=== PATIENT | female | born 1950 | race Caucasian/White ===

== ENCOUNTER 2019-10-03 20:29 | Inpatient (IN) ==
[2019-10-03] MEDS ORDERED: LACTATED RINGERS 1,000 ML IV ONE (20:48)
[2019-10-03 21:50] LABS: Basophils % 0.7 % (0.0-0.8); Eosinophils # 0.1 10*3/uL (0.0-0.87); Eosinophils % 7.1 % (0.00-10.9); Hematocrit 38.2 VOL% (35.7-47.0); Hemoglobin 13.1 GM/DL (12.0-16.0); Immature Granulocytes % 23.4 %; Immature Granulocytes Absolute 0.33 #; Lymphocytes # 0.2 10*3/uL (1.4-4.0); Lymphocytes % 11.3 % (21.3-54.2); Mean Corpuscular HGB Conc 34.3 GM/DL (32-36); Mean Corpuscular Volume 88.2 FL (87-102); Mean Platelet Volume 10.5 FL (9.6-12.0); Monocytes % 0.7 % (1.7-12.7); Neutrophils % 56.8 % (38.7-73.9); Platelet Count 199 T/CUMM (130-400); Red Blood Count 4.33 MC/CUMM (3.8-5.5); Red Cell Distribution Width 12.5 % (9.3-17.3)
[2019-10-03 22:02] LABS: Calcium 8.7 MG/DL (8.5-10.1); Osmolality,Calculated 272.1 MOS/KG (273-304)
[2019-10-03 22:11] LABS: White Blood Count 1.4 T/CUMM (4-12)
[2019-10-03 22:17] LABS: Eosinophils 8 % (0-10); Lymphocytes 19 % (20-55); Segmented Neutrophils 71 % (50-85); Total Cells Counted 100
[2019-10-03 22:18] LABS: Hypersegmented Neutrophil Few; Platelet Estimate Adequate
[2019-10-03 22:34] LABS: Apearance,Urine Slightly Hazy (Clear); Bilirubin,Urine Negative (Negative); Blood, Urine Moderate mg/dL (Negative); Glucose,Urine (UA) Negative (Negative); Ketones,Urine 80 mg/dL (Negative); Mucus,Urine Occasional /LPF (Occasional); Nitrite,Urine Negative (Negative); Protein,Urine Negative; RBC,Urine 3 /HPF (0-4); Squamous Epithelial Cell,Urine Occasional /HPF (0-10); Urine Color Yellow (Yellow); Urine Specific Gravity 1.018 (1.001-1.035); WBC,Urine 2 /HPF (0-6)
[2019-10-03] MEDS ORDERED: LEVOFLOXACIN INJ 500 MG in PREMIX 1 EACH IV STA (22:39)
[2019-10-03] MEDS ORDERED: ACETAMINOPHEN 325 MG TABLET PO PRN (22:46)
[2019-10-04] MEDS: SODIUM CHLORIDE 0.9% 1,000 ML IV SCH ×3 (00:30→15:29)
[2019-10-04] MEDS: ONDANSETRON 4 MG/2 ML VIAL IV PRN ×2 (00:30→17:26)
[2019-10-04 06:00] LABS: Basophils % 7.4 % (0.0-0.8); Eosinophils # 0.1 10*3/uL (0.0-0.87); Eosinophils % 22.2 % (0.00-10.9); Hematocrit 32.9 VOL% (35.7-47.0); Hemoglobin 11.3 GM/DL (12.0-16.0); Immature Granulocytes % 25.9 %; Immature Granulocytes Absolute 0.14 #; Lymphocytes # 0.1 10*3/uL (1.4-4.0); Lymphocytes % 22.2 % (21.3-54.2); Mean Corpuscular HGB Conc 34.3 GM/DL (32-36); Mean Corpuscular Volume 87.3 FL (87-102); Mean Platelet Volume 10.3 FL (9.6-12.0); Monocytes % 3.7 % (1.7-12.7); Neutrophils % 18.6 % (38.7-73.9); Platelet Count 165 T/CUMM (130-400); Red Blood Count 3.77 MC/CUMM (3.8-5.5); Red Cell Distribution Width 12.3 % (9.3-17.3)
[2019-10-04 06:08] LABS: White Blood Count 0.5 T/CUMM (4-12)
[2019-10-04 06:25] LABS: Eosinophils 14 % (0-10); Lymphocytes 35 % (20-55); Segmented Neutrophils 50 % (50-85); Total Cells Counted 100
[2019-10-04 06:26] LABS: Hypochromasia Slight; Platelet Estimate Adequate
[2019-10-04] MEDS ORDERED: HYDROcod/ACETAMIN 7.5-325 MG/15 ML UDCUP PO PRN (09:28)
[2019-10-04] MEDS ORDERED: ONDANSETRON ODT 4 MG TABLET PO PRN (09:28)
[2019-10-04] MEDS: PIPERACILLIN/TAZOBACTAM 3,375 MG in SODIUM CHLORIDE 0.9% 100 ML IV SCH ×3 (10:57→22:52)
[2019-10-04] MEDS: PANTOPRAZOLE 40 MG TABLET PO SCH (10:59)
[2019-10-04] MEDS: DOCUSATE SODIUM 100 MG CAPSULE PO SCH ×2 (10:59→21:00)
[2019-10-04] MEDS: FILGRASTIM-SNDZ 300 MCG/0.5 ML SYRINGE SUBCUT SCH (13:52)
[2019-10-04] MEDS: PILOCARPINE 5 MG TABLET PO SCH ×3 (13:52→21:01)
[2019-10-04] MEDS ORDERED: VANCOMYCIN (NICU) 1,000 MG in SYRINGE 1 EACH IV SCH (14:00)
[2019-10-04] MEDS: VANCOMYCIN INJ 1,000 MG in SODIUM CHLORIDE 0.9% 250 ML IV SCH (15:32)
[2019-10-04] MEDS: CITALOPRAM 20 MG TABLET PO SCH (21:00)
[2019-10-04] MEDS: PREGABALIN 75 MG CAPSULE PO SCH (21:01)
[2019-10-04] MEDS: LEVOFLOXACIN INJ 500 MG in PREMIX 1 EACH IV SCH (21:41)
[2019-10-05] MEDS: VANCOMYCIN INJ 1,000 MG in SODIUM CHLORIDE 0.9% 250 ML IV SCH ×2 (02:56→17:26)
[2019-10-05 06:03] LABS: Hematocrit 32.3 VOL% (35.7-47.0); Hemoglobin 10.8 GM/DL (12.0-16.0); Immature Granulocytes % 4.3 %; Immature Granulocytes Absolute 0.01 #; Lymphocytes # 0.1 10*3/uL (1.4-4.0); Lymphocytes % 43.5 % (21.3-54.2); Mean Corpuscular HGB Conc 33.4 GM/DL (32-36); Mean Corpuscular Volume 90.7 FL (87-102); Mean Platelet Volume 11.3 FL (9.6-12.0); Monocytes % 4.3 % (1.7-12.7); Neutrophils % 34.9 % (38.7-73.9); Platelet Count 127 T/CUMM (130-400); Red Blood Count 3.56 MC/CUMM (3.8-5.5); Red Cell Distribution Width 12.2 % (9.3-17.3)
[2019-10-05 06:06] LABS: White Blood Count 0.2 T/CUMM (4-12)
[2019-10-05] MEDS: PIPERACILLIN/TAZOBACTAM 3,375 MG in SODIUM CHLORIDE 0.9% 100 ML IV SCH ×3 (06:15→23:25)
[2019-10-05 06:21] LABS: Calcium 7.3 MG/DL (8.5-10.1); Osmolality,Calculated 266.2 MOS/KG (273-304)
[2019-10-05 06:36] LABS: Eosinophils 40 % (0-10); Lymphocytes 52 % (20-55); Segmented Neutrophils 8 % (50-85); Total Cells Counted 100
[2019-10-05] MEDS: ONDANSETRON 4 MG/2 ML VIAL IV PRN ×2 (09:31→15:08)
[2019-10-05] MEDS: SODIUM CHLORIDE 0.9% 1,000 ML IV SCH (09:31)
[2019-10-05] MEDS: prednisoLONE 15 MG/5 ML ORAL.SYR PO SCH (09:34)
[2019-10-05] MEDS: PILOCARPINE 5 MG TABLET PO SCH ×4 (09:36→20:43)
[2019-10-05] MEDS: PREGABALIN 75 MG CAPSULE PO SCH ×2 (09:38→20:42)
[2019-10-05] MEDS: ESTRADIOL 2 MG TABLET PO SCH (09:38)
[2019-10-05] MEDS: POTASSIUM CHLORIDE 20 MEQ PACK PO SCH ×2 (09:38→12:05)
[2019-10-05] MEDS: LOSARTAN 50 MG TABLET PO SCH (09:39)
[2019-10-05] MEDS: VERAPAMIL 120 MG TABLET PO SCH (09:39)
[2019-10-05] MEDS: allopurinoL 300 MG TABLET PO SCH (09:39)
[2019-10-05] MEDS: MULTIVITAMIN (CENTRUM) TABLET PO SCH (09:39)
[2019-10-05] MEDS: PANTOPRAZOLE 40 MG TABLET PO SCH (09:39)
[2019-10-05] MEDS: DOCUSATE SODIUM 100 MG CAPSULE PO SCH ×2 (09:41→20:42)
[2019-10-05] MEDS: NYSTATIN 500,000 UNIT/5 ML UDCUP SWISH/SWAL SCH ×4 (09:41→20:43)
[2019-10-05] MEDS: FILGRASTIM-SNDZ 300 MCG/0.5 ML SYRINGE SUBCUT SCH (09:42)
[2019-10-05] MEDS ORDERED: POTASSIUM CHLORIDE RIDER 20 MEQ in PREMIX 1 EACH IV ONE (11:55)
[2019-10-05] MEDS: SODIUM CHLOR 0.9% KCL 40 MEQ 40 MEQ/1,000 ML BAG IV SCH ×2 (12:34→22:02)
[2019-10-05] MEDS ORDERED: ZALEPLON 5 MG CAPSULE PO PRN (18:06)
[2019-10-05] MEDS: CITALOPRAM 20 MG TABLET PO SCH (20:42)
[2019-10-05] MEDS: LEVOFLOXACIN INJ 500 MG in PREMIX 1 EACH IV SCH (20:44)
[2019-10-06] MEDS: VANCOMYCIN INJ 1,000 MG in SODIUM CHLORIDE 0.9% 250 ML IV SCH ×2 (03:22→14:35)
[2019-10-06] MEDS: PIPERACILLIN/TAZOBACTAM 3,375 MG in SODIUM CHLORIDE 0.9% 100 ML IV SCH ×3 (06:20→23:22)
[2019-10-06 06:34] LABS: Eosinophils # 0.1 10*3/uL (0.0-0.87); Eosinophils % 38.1 % (0.00-10.9); Hematocrit 27.4 VOL% (35.7-47.0); Hemoglobin 9.1 GM/DL (12.0-16.0); Lymphocytes # 0.1 10*3/uL (1.4-4.0); Lymphocytes % 52.4 % (21.3-54.2); Mean Corpuscular HGB Conc 33.2 GM/DL (32-36); Mean Platelet Volume 11.1 FL (9.6-12.0); Monocytes % 4.8 % (1.7-12.7); Neutrophils % 4.7 % (38.7-73.9); Red Blood Count 3.08 MC/CUMM (3.8-5.5); Red Cell Distribution Width 12.5 % (9.3-17.3)
[2019-10-06 06:36] LABS: Platelet Count 87 T/CUMM (130-400)
[2019-10-06 06:38] LABS: White Blood Count 0.2 T/CUMM (4-12)
[2019-10-06 06:55] LABS: Calcium 7.3 MG/DL (8.5-10.1); Osmolality,Calculated 272.7 MOS/KG (273-304)
[2019-10-06 06:59] LABS: Eosinophils 53 % (0-10); Lymphocytes 27 % (20-55); Platelet Estimate Decreased; Segmented Neutrophils 13 % (50-85); Total Cells Counted 100
[2019-10-06 07:00] LABS: Hypochromasia 1+
[2019-10-06] MEDS ORDERED: ALPRAZolam 0.25 MG TABLET PO PRN (07:45)
[2019-10-06] MEDS ORDERED: guaiFENesin 200 MG/10 ML UDCUP PO PRN (07:45)
[2019-10-06] MEDS ORDERED: traMADol 50 MG TABLET PO PRN (07:45)
[2019-10-06] MEDS ORDERED: MYLANTA/LIDO VISC 2:1 300 ML BOTTLE SWISH/SPIT PRN (07:45)
[2019-10-06] MEDS ORDERED: LACTULOSE 20 GM/30 ML UDCUP PO PRN (07:45)
[2019-10-06] MEDS ORDERED: ALUMINUM/MAGNES/SIMETH MAX STR 30 ML UDCUP PO PRN (07:45)
[2019-10-06] MEDS ORDERED: MYLANTA/LIDO VISC 2:1 300 ML BOTTLE SWISH/SWAL PRN (07:45)
[2019-10-06] MEDS ORDERED: PROMETHAZINE INJ 25 MG in SODIUM CHLORIDE 0.9% 50 ML IV PRN (07:45)
[2019-10-06] MEDS ORDERED: LOPERAMIDE 2 MG CAPSULE PO PRN ×2 (07:45)
[2019-10-06] MEDS ORDERED: MAGNESIUM HYDROXIDE SUSP 30 ML UDCUP PO PRN (07:45)
[2019-10-06] MEDS ORDERED: diphenhydrAMINE CAP 25 MG CAPSULE PO PRN (07:45)
[2019-10-06] MEDS ORDERED: ONDANSETRON 4 MG/2 ML VIAL IV PRN (07:45)
[2019-10-06] MEDS: MULTIVITAMIN (CENTRUM) TABLET PO SCH (08:28)
[2019-10-06] MEDS: ESTRADIOL 2 MG TABLET PO SCH (08:28)
[2019-10-06] MEDS: NYSTATIN 500,000 UNIT/5 ML UDCUP SWISH/SWAL SCH ×4 (08:28→21:11)
[2019-10-06] MEDS: LOSARTAN 50 MG TABLET PO SCH (08:29)
[2019-10-06] MEDS: PILOCARPINE 5 MG TABLET PO SCH ×4 (08:29→21:11)
[2019-10-06] MEDS: prednisoLONE 15 MG/5 ML ORAL.SYR PO SCH (08:29)
[2019-10-06] MEDS: PANTOPRAZOLE 40 MG TABLET PO SCH (08:30)
[2019-10-06] MEDS: SODIUM CHLOR 0.9% KCL 40 MEQ 40 MEQ/1,000 ML BAG IV SCH ×2 (08:30→16:30)
[2019-10-06] MEDS: DOCUSATE SODIUM 100 MG CAPSULE PO SCH ×2 (08:30→21:10)
[2019-10-06] MEDS: VERAPAMIL 120 MG TABLET PO SCH (08:30)
[2019-10-06] MEDS: PREGABALIN 75 MG CAPSULE PO SCH ×2 (08:30→21:10)
[2019-10-06] MEDS: allopurinoL 300 MG TABLET PO SCH (08:30)
[2019-10-06] MEDS: FILGRASTIM-SNDZ 300 MCG/0.5 ML SYRINGE SUBCUT SCH (08:31)
[2019-10-06] MEDS: CITALOPRAM 20 MG TABLET PO SCH (21:10)
[2019-10-06] MEDS: TEMAZEPAM 7.5 MG CAPSULE PO PRN (21:11)
[2019-10-06] MEDS: LEVOFLOXACIN INJ 500 MG in PREMIX 1 EACH IV SCH (21:52)
[2019-10-07] MEDS: VANCOMYCIN INJ 1,000 MG in SODIUM CHLORIDE 0.9% 250 ML IV SCH ×2 (03:02→14:33)
[2019-10-07 04:42] LABS: Eosinophils % 17.4 % (0.00-10.9); Hematocrit 26.1 VOL% (35.7-47.0); Hemoglobin 8.8 GM/DL (12.0-16.0); Lymphocytes # 0.1 10*3/uL (1.4-4.0); Lymphocytes % 47.8 % (21.3-54.2); Mean Corpuscular HGB Conc 33.7 GM/DL (32-36); Mean Corpuscular Volume 89.1 FL (87-102); Mean Platelet Volume 11.6 FL (9.6-12.0); Monocytes % 8.7 % (1.7-12.7); Neutrophils % 26.1 % (38.7-73.9); Red Blood Count 2.93 MC/CUMM (3.8-5.5); Red Cell Distribution Width 12.6 % (9.3-17.3)
[2019-10-07 04:45] LABS: White Blood Count 0.2 T/CUMM (4-12)
[2019-10-07 04:46] LABS: Platelet Count 60 T/CUMM (130-400)
[2019-10-07 04:55] LABS: Calcium 7.4 MG/DL (8.5-10.1); Osmolality,Calculated 275.4 MOS/KG (273-304)
[2019-10-07 05:22] LABS: Eosinophils 25 % (0-10); Metamyelocytes 5 %; Platelet Estimate Decreased; Segmented Neutrophils 10 % (50-85)
[2019-10-07 05:25] LABS: Hypochromasia 2+; Lymphocytes 7 % (20-55); Total Cells Counted 72
[2019-10-07 05:26] LABS: Anisocytosis 1+; Macrocytosis 1+
[2019-10-07 05:27] LABS: Ovalocytes 2+
[2019-10-07] MEDS: PIPERACILLIN/TAZOBACTAM 3,375 MG in SODIUM CHLORIDE 0.9% 100 ML IV SCH ×3 (06:13→23:08)
[2019-10-07] MEDS ORDERED: POTASSIUM CHLORIDE RIDER 20 MEQ in PREMIX 1 EACH IV PRN (07:16)
[2019-10-07] MEDS ORDERED: POTASSIUM CHLORIDE RIDER 10 MEQ in PREMIX 1 EACH IV PRN (07:16)
[2019-10-07] MEDS ORDERED: POTASSIUM CHLORIDE 20 MEQ/15 ML UDCUP PER TUBE PRN (07:16)
[2019-10-07] MEDS: SODIUM CHLOR 0.9% KCL 40 MEQ 40 MEQ/1,000 ML BAG IV SCH ×2 (07:20→15:57)
[2019-10-07] MEDS: NYSTATIN 500,000 UNIT/5 ML UDCUP SWISH/SWAL SCH ×4 (08:55→21:30)
[2019-10-07] MEDS: MULTIVITAMIN (CENTRUM) TABLET PO SCH (08:55)
[2019-10-07] MEDS: PILOCARPINE 5 MG TABLET PO SCH ×4 (08:55→21:31)
[2019-10-07] MEDS: PREGABALIN 75 MG CAPSULE PO SCH ×2 (08:55→21:31)
[2019-10-07] MEDS: ESTRADIOL 2 MG TABLET PO SCH (08:55)
[2019-10-07] MEDS: LOSARTAN 50 MG TABLET PO SCH (08:55)
[2019-10-07] MEDS: DOCUSATE SODIUM 100 MG CAPSULE PO SCH ×2 (08:56→21:31)
[2019-10-07] MEDS: PANTOPRAZOLE 40 MG TABLET PO SCH (08:56)
[2019-10-07] MEDS: VERAPAMIL 120 MG TABLET PO SCH (08:58)
[2019-10-07] MEDS: FILGRASTIM-SNDZ 300 MCG/0.5 ML SYRINGE SUBCUT SCH (08:58)
[2019-10-07] MEDS: allopurinoL 300 MG TABLET PO SCH (09:05)
[2019-10-07] MEDS: CITALOPRAM 20 MG TABLET PO SCH (21:30)
[2019-10-07] MEDS: TEMAZEPAM 7.5 MG CAPSULE PO PRN ×2 (21:30→23:12)
[2019-10-07] MEDS: LEVOFLOXACIN INJ 500 MG in PREMIX 1 EACH IV SCH (21:31)
[2019-10-08] MEDS: VANCOMYCIN INJ 1,000 MG in SODIUM CHLORIDE 0.9% 250 ML IV SCH ×2 (02:37→15:22)
[2019-10-08] MEDS: PIPERACILLIN/TAZOBACTAM 3,375 MG in SODIUM CHLORIDE 0.9% 100 ML IV SCH ×3 (06:05→23:35)
[2019-10-08] MEDS: SODIUM CHLOR 0.9% KCL 40 MEQ 40 MEQ/1,000 ML BAG IV SCH ×4 (08:59→21:19)
[2019-10-08] MEDS: PANTOPRAZOLE 40 MG TABLET PO SCH (09:00)
[2019-10-08] MEDS: PILOCARPINE 5 MG TABLET PO SCH ×4 (09:00→21:26)
[2019-10-08] MEDS: DOCUSATE SODIUM 100 MG CAPSULE PO SCH ×2 (09:01→21:32)
[2019-10-08] MEDS: LOSARTAN 50 MG TABLET PO SCH (09:01)
[2019-10-08] MEDS: PREGABALIN 75 MG CAPSULE PO SCH ×2 (09:01→21:26)
[2019-10-08] MEDS: MULTIVITAMIN (CENTRUM) TABLET PO SCH (09:02)
[2019-10-08] MEDS: ESTRADIOL 2 MG TABLET PO SCH (09:02)
[2019-10-08] MEDS: allopurinoL 300 MG TABLET PO SCH (09:02)
[2019-10-08] MEDS: FILGRASTIM-SNDZ 300 MCG/0.5 ML SYRINGE SUBCUT SCH (09:03)
[2019-10-08] MEDS: NYSTATIN 500,000 UNIT/5 ML UDCUP SWISH/SWAL SCH ×4 (09:03→21:25)
[2019-10-08] MEDS: VERAPAMIL 120 MG TABLET PO SCH (09:11)
[2019-10-08 09:37] LABS: Eosinophils # 0.2 10*3/uL (0.0-0.87); Eosinophils % 16.7 % (0.00-10.9); Hematocrit 29.9 VOL% (35.7-47.0); Hemoglobin 10.2 GM/DL (12.0-16.0); Immature Granulocytes % 2.1 %; Immature Granulocytes Absolute 0.02 #; Lymphocytes # 0.1 10*3/uL (1.4-4.0); Lymphocytes % 11.5 % (21.3-54.2); Mean Corpuscular HGB Conc 34.1 GM/DL (32-36); Mean Corpuscular Volume 88.5 FL (87-102); Mean Platelet Volume 12.3 FL (9.6-12.0); Monocytes % 8.3 % (1.7-12.7); Neutrophils % 60.4 % (38.7-73.9); Red Blood Count 3.38 MC/CUMM (3.8-5.5); Red Cell Distribution Width 12.7 % (9.3-17.3)
[2019-10-08 09:39] LABS: Platelet Count 61 T/CUMM (130-400)
[2019-10-08 09:53] LABS: Calcium 7.7 MG/DL (8.5-10.1); Osmolality,Calculated 269.8 MOS/KG (273-304)
[2019-10-08 10:07] LABS: Anisocytosis Slight; Band Neutrophils 20 % (0-10); Eosinophils 23 % (0-10); Lymphocytes 10 % (20-55); Macrocytosis Slight; Myelocytes 1 %; Platelet Estimate Decreased; Segmented Neutrophils 37 % (50-85); Total Cells Counted 100
[2019-10-08] MEDS: LEVOFLOXACIN INJ 500 MG in PREMIX 1 EACH IV SCH (21:20)
[2019-10-08] MEDS: CITALOPRAM 20 MG TABLET PO SCH (21:26)
[2019-10-08] MEDS: TEMAZEPAM 7.5 MG CAPSULE PO PRN (21:32)
[2019-10-09 04:22] LABS: Basophils % 1.1 % (0.0-0.8); Eosinophils # 0.2 10*3/uL (0.0-0.87); Eosinophils % 7.2 % (0.00-10.9); Hematocrit 27.5 VOL% (35.7-47.0); Hemoglobin 9.2 GM/DL (12.0-16.0); Immature Granulocytes % 7.2 %; Immature Granulocytes Absolute 0.19 #; Lymphocytes # 0.3 10*3/uL (1.4-4.0); Lymphocytes % 9.8 % (21.3-54.2); Mean Corpuscular HGB Conc 33.5 GM/DL (32-36); Mean Corpuscular Volume 89.6 FL (87-102); Mean Platelet Volume 12.5 FL (9.6-12.0); Monocytes % 8.7 % (1.7-12.7); Platelet Count 58 T/CUMM (130-400); Red Blood Count 3.07 MC/CUMM (3.8-5.5); Red Cell Distribution Width 12.8 % (9.3-17.3); White Blood Count 2.6 T/CUMM (4-12)
[2019-10-09 04:36] LABS: Osmolality,Calculated 267.8 MOS/KG (273-304)
[2019-10-09] MEDS: SODIUM CHLOR 0.9% KCL 40 MEQ 40 MEQ/1,000 ML BAG IV SCH ×2 (04:40→14:37)
[2019-10-09] MEDS: VANCOMYCIN INJ 1,000 MG in SODIUM CHLORIDE 0.9% 250 ML IV SCH (06:00)
[2019-10-09 08:02] LABS: Eosinophils 7 % (0-10); Lymphocytes 13 % (20-55); Microcytosis 1+; Platelet Estimate Decreased; Segmented Neutrophils 74 % (50-85); Total Cells Counted 100
[2019-10-09 08:03] LABS: Toxic Granulation 1+
[2019-10-09] MEDS: NYSTATIN 500,000 UNIT/5 ML UDCUP SWISH/SWAL SCH ×2 (09:32→14:37)
[2019-10-09] MEDS: LOSARTAN 50 MG TABLET PO SCH (09:32)
[2019-10-09] MEDS: PANTOPRAZOLE 40 MG TABLET PO SCH (09:33)
[2019-10-09] MEDS: PILOCARPINE 5 MG TABLET PO SCH ×2 (09:33→14:37)
[2019-10-09] MEDS: PREGABALIN 75 MG CAPSULE PO SCH (09:33)
[2019-10-09] MEDS: allopurinoL 300 MG TABLET PO SCH (09:33)
[2019-10-09] MEDS: DOCUSATE SODIUM 100 MG CAPSULE PO SCH (09:33)
[2019-10-09] MEDS: ESTRADIOL 2 MG TABLET PO SCH (09:33)
[2019-10-09] MEDS: FILGRASTIM-SNDZ 300 MCG/0.5 ML SYRINGE SUBCUT SCH (09:36)
[2019-10-09] MEDS: PIPERACILLIN/TAZOBACTAM 3,375 MG in SODIUM CHLORIDE 0.9% 100 ML IV SCH ×2 (09:36→16:54)
[2019-10-09] MEDS: MULTIVITAMIN (CENTRUM) TABLET PO SCH (09:46)
[2019-10-09] MEDS: VERAPAMIL 120 MG TABLET PO SCH (09:46)
[2019-10-09 11:57] VITALS: BP 101/67
[2019-10-09 12:03] LABS: Basophils # 0.1 10*3/uL (0.0-0.2); Basophils % 1.9 % (0.0-0.8); Eosinophils # 0.2 10*3/uL (0.0-0.87); Eosinophils % 4.5 % (0.00-10.9); Hematocrit 29.4 VOL% (35.7-47.0); Hemoglobin 9.9 GM/DL (12.0-16.0); Immature Granulocytes % 8.6 %; Immature Granulocytes Absolute 0.42 #; Lymphocytes # 0.2 10*3/uL (1.4-4.0); Lymphocytes % 4.5 % (21.3-54.2); Mean Corpuscular HGB Conc 33.7 GM/DL (32-36); Mean Corpuscular Volume 89.9 FL (87-102); Mean Platelet Volume 11.7 FL (9.6-12.0); Monocytes % 9.9 % (1.7-12.7); Neutrophils % 70.6 % (38.7-73.9); Platelet Count 61 T/CUMM (130-400); Red Blood Count 3.27 MC/CUMM (3.8-5.5); Red Cell Distribution Width 12.9 % (9.3-17.3); White Blood Count 4.9 T/CUMM (4-12)
[2019-10-09 13:08] LABS: Band Neutrophils 14 % (0-10); Lymphocytes 6 % (20-55); Metamyelocytes 2 %; Ovalocytes Slight; Platelet Estimate Adequate; Polychromasia Slight; Segmented Neutrophils 68 % (50-85); Total Cells Counted 100
== END 2019-10-09 16:28 | disposition home or self-care (01) | DRG 809 ==
LOC: N.ED 20:29 → N.EDINP 22:46 → N.TELES 23:29
PROVIDERS: ADMIT Internal Medicine; ATTEND Internal Medicine